=== PATIENT | female | born 1940 | race Caucasian/White ===

== ENCOUNTER → 2016-07-03 | Outpatient (CLI) | payer MEDICARE, BC | END | disposition home or self-care (01) | LOC: PCVCCLINIC 13:50 | PROVIDERS: ATTEND Internal Medicine | DX: I25.10 Atherosclerotic heart disease of native coronary artery without angina pectoris (principal); I48.0 Paroxysmal atrial fibrillation; I10 Essential (primary) hypertension; E78.5 Hyperlipidemia, unspecified | CPT/HCPCS: 93005; G0463 ==

== ENCOUNTER → 2016-12-31 | Outpatient (CLI) | payer MEDICARE, BC | END | disposition home or self-care (01) | LOC: PCVCCLINIC 11:34 | PROVIDERS: ATTEND Internal Medicine | DX: I25.10 Atherosclerotic heart disease of native coronary artery without angina pectoris (principal); I48.0 Paroxysmal atrial fibrillation; I10 Essential (primary) hypertension; E78.2 Mixed hyperlipidemia; Z79.01 Long term (current) use of anticoagulants; Z90.49 Acquired absence of other specified parts of digestive tract; Z90.710 Acquired absence of both cervix and uterus; Z88.2 Allergy status to sulfonamides; Z79.899 Other long term (current) drug therapy; Z88.6 Allergy status to analgesic agent | CPT/HCPCS: 80061; 93005; G0463 ==

== ENCOUNTER → 2017-06-23 | Outpatient (CLI) | payer MEDICARE, BC | END | disposition home or self-care (01) | LOC: PCVCCLINIC 12:10 | DX: I25.10 Atherosclerotic heart disease of native coronary artery without angina pectoris (principal); I48.0 Paroxysmal atrial fibrillation; I10 Essential (primary) hypertension; R94.31 Abnormal electrocardiogram [ECG] [EKG]; E78.2 Mixed hyperlipidemia; Z79.01 Long term (current) use of anticoagulants; Z79.899 Other long term (current) drug therapy | CPT/HCPCS: 80061; 93005; G0463 ==

== ENCOUNTER → 2017-12-29 | Outpatient (CLI) | payer MEDICARE, BC | END | disposition home or self-care (01) | LOC: PCVCCLINIC 12:50 | PROVIDERS: ATTEND Internal Medicine | DX: I25.10 Atherosclerotic heart disease of native coronary artery without angina pectoris (principal); I48.0 Paroxysmal atrial fibrillation; I10 Essential (primary) hypertension; E78.5 Hyperlipidemia, unspecified; Z79.01 Long term (current) use of anticoagulants; Z88.8 Allergy status to other drugs, medicaments and biological substances; Z79.899 Other long term (current) drug therapy | CPT/HCPCS: 80061; 93005; G0463 ==

== ENCOUNTER → 2018-06-30 | Outpatient (CLI) | payer MEDICARE, BC ==
[~2018-06-30] MED LIST: AMINOPHYLLINE 250 MG/10 ML VIAL. ONE; REGADENOSON 0.4 MG/5 ML DISP.SYRIN. IV ONE
--- NOTE | 2018-06-30 09:43 | PCVCIMAG ---
APPROVED REPORT Study performed: 06/30/2018 08:32:59 EXAM: Comprehensive 2D, Doppler, and color-flow Echocardiogram Patient Location: Echo lab Room #: 2Status: routine BSA: 1.97 HR: 77 bpmBP: 166/90 mmHg Rhythm: NSR Other Information Study Quality: Good Risk Factors: Cardiac Risk Factors: HTN, Hyperlipidemia Indications CAD Hx: Inferolateral AR, Paroxysmal a fib 2D Dimensions IVSd: 8.74 (7-11mm)LVOT Diam: 20.55 (18-24mm) LVDd: 48.76 mm PWd: 9.88 (7-11mm)Ascending Ao: 34.28 (22-36mm) LVDs: 24.20 (25-40mm) Left Atrium: 35.04 (27-40mm) Aortic Root: 30.98 mm LV Single Plane 4CH: 55.89 % LV Single Plane 2CH: 56.67 % Biplane EF: 56.1 % Volumes Left Atrial Volume (Systole) Single Plane 4CH: 54.18 mLSingle Plane 2CH: 50.06 mL Biplane LA Volume: 53.00 mLLA ESV Index: 27.00 mL/m2 Aortic Valve AoV Peak Antonio.: 1.35 m/s AO Peak Gr.: 7.30 mmHgLVOT Max P.21 mmHg LVOT Max V: 1.03 m/s EVIE Vmax: 2.52 cm2 Mitral Valve E/A Ratio: 0.6 MV Decel. Time: 197.35 ms MV E Max Antonio.: 0.58 m/s MV A Antonio.: 0.97 m/s TDI E/Lateral E': 6.44E/Medial E': 11.60 Medial E' Antonio.: 0.05 m/s Lateral E' Antonio.: 0.09 m/s Pulmonary Valve PV Peak Antonio.: 0.89 m/sPV Peak Gr.: 3.15 mmHg Pulmonary Vein P Vein S: 0.48 m/sP Vein A: 0.38 m/s P Vein D: 0.26 m/sP Vein A Dur.: 114.2 msec P Vein S/D Ratio: 1.85 Tricuspid Valve TR Peak Antonio.: 2.09 m/s TR Peak Gr.: 17.41 mmHg TV Vmax: 0.50 m/sPA Pressure: 25.00 mmHg Left Ventricle The left ventricle is normal size. There is normal left ventricular wall thickness. Left ventricular systolic function is normal. Mild hypokinesis base of inferior wall. LVEF is 55-60%. Mild diastolic dysfunction is present (impaired relaxation pattern). Right Ventricle The right ventricle is normal size. The right ventricular systolic function is normal. Atria The left atrium size is normal. The right atrium size is normal. Aortic Valve Aortic valve is trileaflet, minimal sclerosis. No aortic regurgitation is present. There is no aortic valvular stenosis. Mitral Valve The mitral valve is normal in structure. There is no mitral valve regurgitation noted. No evidence of mitral valve stenosis. Tricuspid Valve The tricuspid valve is normal in structure. Trace tricuspid regurgitation. No pulmonary hypertension. Pulmonic Valve The pulmonary valve is normal in structure. There is no pulmonic valvular regurgitation. Great Vessels The aortic root is normal in size. The ascending aorta is normal in size. Aortic arch is normal in caliber. IVC is normal in size and collapses >50% with inspiration. Pericardium There is no pericardial effusion. There is no pleural effusion. <Conclusion> Left ventricular systolic function is normal. Mild hypokinesis base of inferior wall. LVEF is 55-60%. Mild diastolic dysfunction Aortic valve is trileaflet, minimal sclerosis. No aortic regurgitation or stenosis. The mitral valve is normal in structure. No mitral valve regurgitation. Pulmonary artery pressure could not be reliably ascertained There is no pericardial effusion.
--- NOTE | 2018-06-30 17:28 | PCVCIMAG ---
APPROVED REPORT Imaging Protocol: Rest Tc-99m/Stress Tc-99m 1 day Study performed: 06/30/2018 08:56:31 Indication: CAD Patient Location: Out-Patient Stress Nurse: Alanna Davison RN, Barbara Jewell RN [place] Tech:Nasrin GURJIT LockeMT Ht: 5 ft 4 in Wt: 203 lbs BSA: 1.97 m2 HR: 76 bpm BP: 149/72 mmHg BMI: 34.8 Medical History Medical History: Hyperlipidemia, CAD, NC Medications: Eliquis, Atorvastatin, Losartan, Metoprolol, Dyazide Allergies: Sulfa, Tramadol Cardiac Risk Factors: Age Previous Cardiac Procedures: 2017 PCI - Stent to Circ Pretest Chest Pain Characteristics: No chest pain Exercise History: Sedentary Meds Held (24 hrs): Metoprolol Resting Data Rest SPECT myocardial perfusion imaging was performed in supine position 45 minutes following the intravenous injection of 10.2 mCi of Tc-99m Sestamibi. Time of rest injection: 929 Date: 06/30/2018 Administration Route: IV Administration Site: Left AC Pharmacologic Stress Pharmacologic stress test was performed by injecting Regadenoson 0.4 mg IV push over 10-15 seconds immediately followed by the intravenous injection of 31.9 mCi of Tc-99m Sestamibi. Time of stress injection: 1044 Date: 06/30/2018 Administration Route: IV Administration Site: Left AC Gated Stress SPECT was performed 45 minutes after stress injection. The images were gated to evaluate regional wall motion and calculate left ventricular ejection fraction. Stress Test Details Stress Test: Pharmacologic stress testing performed using 0.4 mg of regadenoson per 5 mL given IV over 10 seconds. Reason for pharmacologic stress test: physical limitation. Reversal agent Aminophyline 100 mg, given intravenously for lingering signs and symptoms. HRMax Heart Rate (APMHR): 141 bpm Resting HR: 76 bpmTarget HR (85% APMHR): 119 bpm Max HR Achieved: 111 bpm % of APMHR: 78 Recovery HR: 93 bpm BP Resting BP: 149/72 mmHg Max BP: 164/76 mmHg Recovery BP: 154/65 mmHg ECG Resting ECG: Sinus Rhythm Stress ECG: Sinus Tachycardia ST Change: None Maximum ST Deviation: 0 mm Arrhythmia: None Recovery ECG: Sinus Rhythm Recovery ST Change: None Recovery ST Deviation: 0 mm Recovery Arrhythmia: None Clinical Reason for Termination: Completed protocol Stress Symptoms: Abdominal discomfort, Dyspnea, Lightheaded, Nausea Exercise duration: 0 min 55 sec Symptoms resolved during recovery with aminophylline. Stress ECG Conclusion ECG: Non-ischemic Clinical: Non-ischemic Study Data Post stress, the left ventricular ejection was 58%.. SSS: 0 SRS: 0 SDS: 0 TID = 0.93. Perfusion No evidence of stress induced ischemia or prior myocardial infarction. Wall Motion Normal left ventricular size and function with no regional wall motion abnormalities. Nuclear Conclusion No evidence of stress induced ischemia or prior myocardial infarction. Normal left ventricular size and function with no regional wall motion abnormalities. Post stress, the left ventricular ejection was 58%. No prior study available for comparison. Interpreted by: Calros Ngo MD Electronically Approved: 06/30/2018 17:21:08 <Conclusion> ECG: Non-ischemic Clinical: Non-ischemic
== END | disposition home or self-care (01) ==
LOC: PCVCIMAG 08:28
PROVIDERS: ATTEND Internal Medicine
DX: I25.10 Atherosclerotic heart disease of native coronary artery without angina pectoris (principal); I48.0 Paroxysmal atrial fibrillation; E78.5 Hyperlipidemia, unspecified; I10 Essential (primary) hypertension; Z79.01 Long term (current) use of anticoagulants
CPT/HCPCS: 36415; 78452; 80061; 93017; 93306; A9500; G0463; J0280; J2785

== ENCOUNTER → 2019-01-05 | Outpatient (CLI) | payer MEDICARE, BC | END | disposition home or self-care (01) | LOC: PCVCCLINIC 11:00 | PROVIDERS: ATTEND Internal Medicine | DX: I25.10 Atherosclerotic heart disease of native coronary artery without angina pectoris (principal); I48.0 Paroxysmal atrial fibrillation; E78.5 Hyperlipidemia, unspecified; I10 Essential (primary) hypertension; Z79.01 Long term (current) use of anticoagulants; Z88.1 Allergy status to other antibiotic agents; Z88.8 Allergy status to other drugs, medicaments and biological substances | CPT/HCPCS: 36415; 80061; 93005; G0463 ==